=== PATIENT | female | born 1970 | race Caucasian/White ===

== ENCOUNTER 2019-07-13 14:13 | Outpatient (REF) | payer BC, SELFPAY ==
[2019-07-13 21:46] LABS: Abs Immature Grans 0.02 k/cumm (0.0-0.09); Absolute Basophil Count 0.06 k/cumm (0.0-0.2); Absolute Eosinophil Count 0.16 k/cumm (0.0-0.7); Absolute Lymphocyte Count 1.84 k/cumm (1.2-3.4); Absolute Monocyte Count 1.13 k/cumm (0.11-0.7); Basophils % 0.5; Eosinophils % 1.4; HCT 46.9 % (36.0-46.0); HGB 13.3 g/dL (12.0-15.5); Immature Grans % 0.2 %; Lymphocytes % 16.3; Mean Corp. HGB Concentration 28.4 g/dL (32.0-36.0); Mean Corpuscular Hemoglobin 27.4 pg (27.0-33.0); Mean Corpuscular Volume 96.5 fL (80-95); Mean Platelet Volume 10.6 fL (8.0-11.0); Neutrophils % 71.6; Platelet Count 382 x1000/uL (130-400); RBC 4.86 m/cumm (4.00-5.20); RBC Distribution Width 18.5 % (11.7-14.6); White Blood Cell Count 11.26 k/cumm (4.4-10.8)
[2019-07-13 21:52] LABS: Absolute Neutrophil Count 8.06 k/cumm (1.2-6.7)
[2019-07-13 22:06] LABS: ALT 58 U/L (14-59); AST 33 U/L (15-37); Albumin 3.9 g/dL (3.4-5.0); Alkaline Phosphatase 94 U/L (46-116); Anion Gap 7.7 mmol/L (3-11); BUN 19 mg/dL (7-18); Bilirubin, Total 0.5 mg/dL (0.2-1.0); CO2 42.3 mmol/L (21.0-32.0); CREATININE 0.92 mg/dL (0.55-1.02); Calcium 9.3 mg/dL (8.5-10.1); Calculated LDL 129 mg/dL (<100); Chloride 91 mmol/L (98-107); Cholesterol 203 mg/dL (<200); Glucose 117 mg/dL (74-106); HDL Cholesterol 46 mg/dL (40-60); Potassium 3.4 mmol/L (3.5-5.1); Sodium 141 mmol/L (136-145); TSH (W/Ref FT4) 3.36 uIU/mL (0.36-3.74); Total Protein 7.8 g/dL (6.4-8.2); Triglyceride 140 mg/dL (<150)
[2019-07-13 22:08] LABS: Hemoglobin A1C 6.4 % (3.8-5.6)
== END 2019-07-13 14:33 ==
LOC: NCHCN 14:13
PROVIDERS: PCP Nurse Practitioner Family; Visit Provider Nurse Practitioner Family
DX: E03.9 Hypothyroidism, unspecified (principal); D64.9 Anemia, unspecified; I50.9 Heart failure, unspecified; E66.9 Obesity, unspecified; Z13.1 Encounter for screening for diabetes mellitus; Z13.220 Encounter for screening for lipoid disorders
CPT/HCPCS: 80053; 80061; 83036; 84443; 85025

== ENCOUNTER 2019-07-20 21:23 | Outpatient (REF) | payer BC, SELFPAY ==
[2019-07-20 21:33] LABS: Anion Gap 3.9 mmol/L (3-11); BUN 22 mg/dL (7-18); CO2 44.1 mmol/L (21.0-32.0); CREATININE 1.44 mg/dL (0.55-1.02); Calcium 9.5 mg/dL (8.5-10.1); Chloride 92 mmol/L (98-107); Estimated GFR 38.53 (mL/min/1.73m2); Glucose 100 mg/dL (74-106); Potassium 3.2 mmol/L (3.5-5.1); Sodium 140 mmol/L (136-145)
== END 2019-07-20 21:43 ==
LOC: NCHCN 21:23
PROVIDERS: PCP Nurse Practitioner Family; Visit Provider Nurse Practitioner Family
DX: I50.30 Unspecified diastolic (congestive) heart failure (principal); I27.20 Pulmonary hypertension, unspecified
CPT/HCPCS: 80048

== ENCOUNTER 2019-07-27 18:12 | Outpatient (REF) | payer BC, SELFPAY ==
[2019-07-27 21:35] LABS: Anion Gap 6.2 mmol/L (3-11); BUN 22 mg/dL (7-18); CO2 41.8 mmol/L (21.0-32.0); CREATININE 1.61 mg/dL (0.55-1.02); Chloride 92 mmol/L (98-107); Estimated GFR 33.87 (mL/min/1.73m2); Glucose 91 mg/dL (74-106); Potassium 3.3 mmol/L (3.5-5.1); Sodium 140 mmol/L (136-145)
== END 2019-07-27 18:32 ==
LOC: NCHCN 18:12
PROVIDERS: PCP Nurse Practitioner Family; Visit Provider Nurse Practitioner Family
DX: I27.20 Pulmonary hypertension, unspecified (principal)
CPT/HCPCS: 80048

== ENCOUNTER 2019-08-03 22:20 | Outpatient (REF) | payer BC, SELFPAY ==
[2019-08-03 21:46] LABS: Anion Gap 4.6 mmol/L (3-11); BUN 13 mg/dL (7-18); CO2 37.4 mmol/L (21.0-32.0); CREATININE 1.06 mg/dL (0.55-1.02); Calcium 8.7 mg/dL (8.5-10.1); Chloride 99 mmol/L (98-107); Estimated GFR 54.87 (mL/min/1.73m2); Glucose 80 mg/dL (74-106); NT-proBNP 78 pg/mL (<300); Potassium 3.9 mmol/L (3.5-5.1); Sodium 141 mmol/L (136-145)
[2019-08-07 11:09] LABS: Hepatitis C Ab w Rflx HCV PCR Negative (Negative)
== END 2019-08-03 22:40 ==
LOC: NCHCN 22:20
PROVIDERS: PCP Nurse Practitioner Family; Visit Provider Nurse Practitioner Family
DX: I50.30 Unspecified diastolic (congestive) heart failure (principal); E87.6 Hypokalemia; Z11.59 Encounter for screening for other viral diseases
CPT/HCPCS: 80048; 86803; 83880

== ENCOUNTER 2019-08-14 16:56 | Outpatient (REF) | payer BC, SELFPAY ==
[2019-08-14 21:22] LABS: Anion Gap 4.1 mmol/L (3-11); BUN 11 mg/dL (7-18); CO2 36.9 mmol/L (21.0-32.0); CREATININE 0.97 mg/dL (0.55-1.02); Calcium 8.7 mg/dL (8.5-10.1); Chloride 101 mmol/L (98-107); Glucose 79 mg/dL (74-106); Sodium 142 mmol/L (136-145)
== END 2019-08-14 17:16 ==
LOC: NCHCN 16:56
PROVIDERS: PCP Nurse Practitioner Family; Visit Provider Nurse Practitioner Family
DX: E87.6 Hypokalemia (principal); I50.30 Unspecified diastolic (congestive) heart failure
CPT/HCPCS: 80048

== ENCOUNTER 2019-11-13 13:41 | Outpatient (REF) | payer MEDICAID, SELFPAY ==
[2019-11-13 20:58] LABS: HCT 35.7 % (36.0-46.0); Mean Corp. HGB Concentration 33.6 g/dL (32.0-36.0); Mean Platelet Volume 9.8 fL (8.0-11.0); Platelet Count 283 x1000/uL (130-400); RBC Distribution Width 15.5 % (11.7-14.6); White Blood Cell Count 9.86 k/cumm (4.4-10.8)
[2019-11-13 21:22] LABS: ALT 37 U/L (14-59); AST 31 U/L (15-37); Albumin 3.6 g/dL (3.4-5.0); Alkaline Phosphatase 102 U/L (46-116); Anion Gap 5.6 mmol/L (3-11); BUN 13 mg/dL (7-18); Bilirubin, Total 0.9 mg/dL (0.2-1.0); CO2 37.4 mmol/L (21.0-32.0); CREATININE 1.03 mg/dL (0.55-1.02); Calcium 8.7 mg/dL (8.5-10.1); Calculated LDL 76 mg/dL (<100); Chloride 99 mmol/L (98-107); Cholesterol 147 mg/dL (<200); Estimated GFR 56.49 (mL/min/1.73m2); Glucose 146 mg/dL (74-106); HDL Cholesterol 52 mg/dL (40-60); Potassium 3.8 mmol/L (3.5-5.1); Sodium 142 mmol/L (136-145); TSH 17.67 uIU/mL (0.36-3.74); Total Protein 7.2 g/dL (6.4-8.2); Triglyceride 97 mg/dL (<150)
[2019-11-13 21:33] LABS: Vitamin D 25 Total 5.6 ng/ml (30-100)
[2019-11-13 22:03] LABS: NT-proBNP 27 pg/mL (<300)
[2019-11-16 09:08] LABS: Folate 3.4 ng/mL (See Note); Vitamin B12 192 pg/mL (211-911)
== END 2019-11-13 14:01 ==
LOC: NCHCN 13:41
PROVIDERS: PCP Nurse Practitioner Family; Visit Provider Nurse Practitioner Family
DX: R53.83 Other fatigue (principal); E78.5 Hyperlipidemia, unspecified; I50.30 Unspecified diastolic (congestive) heart failure; E66.9 Obesity, unspecified; E87.6 Hypokalemia
CPT/HCPCS: 80053; 80061; 82306; 85027; 82607; 82746; 83880; 84443

== ENCOUNTER 2019-12-26 11:57 | Outpatient (REF) | payer MEDICAID, SELFPAY ==
[2019-12-26 21:26] LABS: HCT 38.7 % (36.0-46.0); HGB 12.4 g/dL (12.0-15.5); Mean Corpuscular Hemoglobin 39.7 pg (27.0-33.0); Mean Platelet Volume 10.9 fL (8.0-11.0); Platelet Count 338 x1000/uL (130-400); RBC 3.12 m/cumm (4.00-5.20); RBC Distribution Width 13.3 % (11.7-14.6); White Blood Cell Count 10.66 k/cumm (4.4-10.8)
[2019-12-26 21:58] LABS: Anion Gap 3.2 mmol/L (3-11); BUN 14 mg/dL (7-18); CO2 35.8 mmol/L (21.0-32.0); CREATININE 1.26 mg/dL (0.55-1.02); Calcium 9.2 mg/dL (8.5-10.1); Chloride 101 mmol/L (98-107); Estimated GFR 44.77 (mL/min/1.73m2); Folate 7.5 ng/mL (8.6-20.0); Glucose 128 mg/dL (74-106); Potassium 4.1 mmol/L (3.5-5.1); Sodium 140 mmol/L (136-145); TSH 63.67 uIU/mL (0.36-3.74); Vitamin B12 622 pg/mL (193-986)
[2019-12-27 15:46] LABS: FREE T4 0.63 ng/dL (0.76-1.46)
== END 2019-12-26 12:17 ==
LOC: NCHCN 11:57
PROVIDERS: PCP Nurse Practitioner Family; Visit Provider Nurse Practitioner Family
DX: E03.9 Hypothyroidism, unspecified (principal); I10 Essential (primary) hypertension; J96.21 Acute and chronic respiratory failure with hypoxia; I50.30 Unspecified diastolic (congestive) heart failure; D53.9 Nutritional anemia, unspecified
CPT/HCPCS: 80048; 85027; 82607; 82746; 84439; 84443

== ENCOUNTER 2020-01-16 16:12 | Outpatient (REF) | payer MEDICAID, SELFPAY ==
[2020-01-18 05:22] LABS: Vitamin D 25 Total 27.2 ng/ml (30-100)
[2020-01-18 10:58] LABS: TSH 44.91 uIU/mL (0.36-3.74)
== END 2020-01-16 16:32 ==
LOC: NCHCN 16:12
PROVIDERS: PCP Nurse Practitioner Family; Visit Provider Nurse Practitioner Family
DX: E55.9 Vitamin D deficiency, unspecified (principal); E03.9 Hypothyroidism, unspecified; R53.83 Other fatigue
CPT/HCPCS: 82306; 84443

== ENCOUNTER 2020-03-01 12:05 | Outpatient (REF) | payer MEDICAID, SELFPAY ==
[2020-03-04 06:07] LABS: Vitamin D 25 Total 25.9 ng/ml (30-100)
== END 2020-03-01 12:25 ==
LOC: NCHCN 12:05
PROVIDERS: PCP Nurse Practitioner Family; Visit Provider Nurse Practitioner Family
DX: E03.9 Hypothyroidism, unspecified (principal); E55.9 Vitamin D deficiency, unspecified
CPT/HCPCS: 82306; 84443

== ENCOUNTER 2020-07-04 19:48 | Outpatient (REF) | payer MEDICAID, SELFPAY ==
[2020-07-04 20:46] LABS: ALT 46 U/L (14-59); AST 27 U/L (15-37); Albumin 3.8 g/dL (3.4-5.0); Alkaline Phosphatase 93 U/L (46-116); Anion Gap 5.7 mmol/L (3-11); BUN 16 mg/dL (7-18); Bilirubin, Total 0.4 mg/dL (0.2-1.0); CO2 36.3 mmol/L (21.0-32.0); CREATININE 0.9 mg/dL (0.55-1.02); Calcium 8.9 mg/dL (8.5-10.1); Chloride 98 mmol/L (98-107); Glucose 83 mg/dL (74-106); Hemoglobin A1C 5.6 % (<5.7); Potassium 3.6 mmol/L (3.5-5.1); Sodium 140 mmol/L (136-145); Total Protein 7.6 g/dL (6.4-8.2)
== END 2020-07-04 20:08 ==
LOC: NCHCN 19:48
PROVIDERS: PCP Nurse Practitioner Family; Visit Provider Nurse Practitioner Family
DX: R73.03 Prediabetes (principal); I10 Essential (primary) hypertension; I27.20 Pulmonary hypertension, unspecified
CPT/HCPCS: 80053; 83036

== ENCOUNTER 2020-08-01 18:22 | Outpatient (REF) | payer MEDICAID, SELFPAY ==
[2020-08-01 20:06] LABS: ALT 38 U/L (14-59); AST 19 U/L (15-37); Albumin 3.8 g/dL (3.4-5.0); Alkaline Phosphatase 91 U/L (46-116); Anion Gap 4.4 mmol/L (3-11); BUN 22 mg/dL (7-18); Bilirubin, Total 0.4 mg/dL (0.2-1.0); CO2 35.6 mmol/L (21.0-32.0); CREATININE 1.1 mg/dL (0.55-1.02); Calcium 8.9 mg/dL (8.5-10.1); Chloride 101 mmol/L (98-107); Estimated GFR 52.36 (mL/min/1.73m2); Glucose 94 mg/dL (74-106); Potassium 3.8 mmol/L (3.5-5.1); Sodium 141 mmol/L (136-145); TSH 0.29 uIU/mL (0.36-3.74); Total Protein 7.6 g/dL (6.4-8.2)
== END 2020-08-01 18:23 | disposition home or self-care (01) ==
LOC: NCHCN 18:22
PROVIDERS: PCP Nurse Practitioner Family; Visit Provider Nurse Practitioner Family
DX: E03.9 Hypothyroidism, unspecified (principal); I27.20 Pulmonary hypertension, unspecified; I50.30 Unspecified diastolic (congestive) heart failure
CPT/HCPCS: 80053; 84443

== ENCOUNTER 2020-08-28 16:17 | Outpatient (REF) | payer MEDICAID, SELFPAY ==
[2020-08-28 22:17] LABS: ALT 40 U/L (14-59); AST 19 U/L (15-37); Albumin 3.8 g/dL (3.4-5.0); Alkaline Phosphatase 87 U/L (46-116); Anion Gap 6.3 mmol/L (3-11); BUN 19 mg/dL (7-18); Bilirubin, Total 0.5 mg/dL (0.2-1.0); CO2 33.7 mmol/L (21.0-32.0); CREATININE 1.6 mg/dL (0.55-1.02); Calcium 9.2 mg/dL (8.5-10.1); Chloride 100 mmol/L (98-107); Estimated GFR 33.85 (mL/min/1.73m2); Glucose 101 mg/dL (74-106); Potassium 4.3 mmol/L (3.5-5.1); Sodium 140 mmol/L (136-145); TSH (W/Ref FT4) 0.18 uIU/mL (0.36-3.74); Total Protein 7.6 g/dL (6.4-8.2)
[2020-08-28 22:38] LABS: FREE T4 1.61 ng/dL (0.76-1.46)
== END 2020-08-28 16:18 | disposition home or self-care (01) ==
LOC: NCHCN 16:17
PROVIDERS: PCP Nurse Practitioner Family; Visit Provider Nurse Practitioner Family
DX: F41.8 Other specified anxiety disorders (principal); F10.11 Alcohol abuse, in remission; R11.0 Nausea
CPT/HCPCS: 80053; 84439; 84443

== ENCOUNTER 2020-09-03 14:37 | Outpatient (REF) | payer MEDICAID, SELFPAY ==
--- OUTSIDE RECORDS SUMMARY | 2020-09-03 14:41 | XMS_ITS ---
:1970 External Reference #:[id number] Author Care Team Providers Name Role Phone KAVITA REESE Primary Care Provider [phone] CASIE WISDOM Crib Clerk [phone] WINSOME WISDOM Crib Clerk [phone] Allergies Code Code System Name Reaction Severity Status Onset RxNorm Lamictal ? ? Active ? 56073 RxNorm Lisinopril Cough ? Active ? Medications Name Status Start Date Stop Date ? ? amoxicillin 500 mg capsule Active ? Not a vailable amoxicillin 875 mg-potassium clavulanate Active ? Not available 125 mg tablet aripiprazole 10 mg tablet Active ? Not av ailable aripiprazole 2 mg tablet Active ? Not iesha ilable aripiprazole 5 mg tablet Active ? Not iesha ilable clonidine HCl 0.1 mg tablet Active ? Not available Incruse Ellipta 62.5 mcg/actuation powder Active ? Not available for inhalation ipratropium 0.5 mg-albuterol 3 mg (2.5 mg Active ? Not available base)/3 mL nebulization soln levothyroxine 112 mcg tablet Active ? Not available levothyroxine 88 mcg tablet Active ? Not available lorazepam 1 mg tablet Active ? Not availa ble metoprolol succinate ER 25 mg Active ? No t available tablet,extended release 24 hr metoprolol succinate ER 50 mg Active ? No t available tablet,extended release 24 hr potassium chloride ER 20 mEq Active ? Not available tablet,extended release(part/cryst) prednisone 20 mg tablet Active ? Not avai lable ProAir HFA 90 mcg/actuation aerosol Active ? Not available inhaler torsemide 20 mg tablet Active ? Not avail able Problems Name Status Onset Date Source ? Obesity Active 04/26/2019 ? Recurrent Major Depression Active 04/26/2019 ? Alcoholism Active 04/26/2019 ? Posttraumatic Stress Disorder Active 04/26/2019 ? Carpal Tunnel Syndrome of Left Wrist Active 04/26/2019 ? 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 Arthritis of First Carpometacarpal Joint of Active 04/08 ? Left Hand Ventricular Tachyarrhythmia Active 04/26/2019 ? Neck Pain Active 05/24/2019 ? Pain in Left Thumb Active 07/19/2019 ? Procedures Date Name Performed by ? 06/05/2019 MRI, Cervical Spine, W/o Contrast [facility] - Radiology [address] [place], [place] [address] (Work Place) Results Lab Results None recorded. Past Encounters 07/19/2019 Carpal Tunnel Syndrome of Left Wrist; Ar thritis of First Carpometacarpal Joint of Left Hand Torres Fuller MD: [address] [place] [phone], Ph. [phone] 06/27/2019 Carpal Tunnel Syndrome of Left Wrist; Ne ck Pain; Arthritis of First Carpometacarpal Joint of Left Hand Torres Fuller MD: [address] [place] [address], Ph. [phone] 05/24/2019 Radial Styloid Tenosynovitis; Neck Pain Torres Fuller MD: [address] [place] [address], [place] [address], Ph. [phone] 05/10/2019 Pain of Left Hand Torres Fuller MD: [address] [place] [address], [place] [address], Ph. [phone] 04/26/2019 Carpal Tunnel Syndrome of Left Wrist; Ar thritis of First Carpometacarpal Joint of Left Hand; Radial Styloid Tenosynovitis Torres Fuller MD: [address] [place] [phone], Ph. [phone] Social History None recorded. Vaccine List None recorded. Plan of Care Reminders Provider Appointments None ? ? recorded. Lab None ? ? recorded. Referral None ? ? recorded. Procedures None ? ? recorded. Surgeries None ? ? recorded. Imaging None ? ? recorded. Vitals None recorded.
[2020-09-03 21:24] LABS: Anion Gap 4.6 mmol/L (3-11); BUN 15 mg/dL (7-18); CO2 32.4 mmol/L (21.0-32.0); CREATININE 1.2 mg/dL (0.55-1.02); Calcium 9.2 mg/dL (8.5-10.1); Chloride 105 mmol/L (98-107); Estimated GFR 47.18 (mL/min/1.73m2); Glucose 93 mg/dL (74-106); Potassium 4.4 mmol/L (3.5-5.1); Sodium 142 mmol/L (136-145)
== END 2020-09-03 14:38 | disposition home or self-care (01) ==
LOC: NCHCN 14:37
PROVIDERS: PCP Nurse Practitioner Family; Visit Provider Nurse Practitioner Family
DX: I10 Essential (primary) hypertension (principal)
CPT/HCPCS: 80048

== ENCOUNTER 2020-10-15 13:41 | Outpatient (REF) | payer MEDICAID, SELFPAY ==
--- OUTSIDE RECORDS SUMMARY | 2020-10-15 13:45 | XMS_ITS ---
:1970 External Reference #:[id number] Author Care Team Providers Name Role Phone KAVITA REESE Primary Care Provider [phone] CASIE WISDOM Bolt Sorter [phone] WINSOME WISDOM Bolt Sorter [phone] Allergies Code Code System Name Reaction Severity Status Onset RxNorm Lamictal ? ? Active ? 73235 RxNorm Lisinopril Cough ? Active ? Medications [...] ? 06/05/2019 MRI, Cervical Spine, W/o Contrast [facility] - Radiology [address] [place], [place] [address] (Work Place) Results Lab Results None recorded. Past Encounters 07/19/2019 Carpal Tunnel Syndrome of Left Wrist; Ar thritis of First Carpometacarpal Joint of Left Hand Torres Fuller MD: [address] [place] [phone], Ph. [phone] 06/27/2019 Carpal Tunnel Syndrome of Left Wrist; Ne ck Pain; Arthritis of First Carpometacarpal Joint of Left Hand Torres Fuller MD: [address] [place] [phone], Ph. [phone] 05/24/2019 Radial Styloid Tenosynovitis; Neck Pain Torres Fuller MD: [address] [place] [address], [place] [address], Ph. [phone] 05/10/2019 Pain of Left Hand Torres Fuller MD: [address] [place] [address], [place] [address], Ph. [phone] 04/26/2019 Carpal Tunnel Syndrome of Left Wrist; Ar thritis of First Carpometacarpal Joint of Left Hand; Radial Styloid Tenosynovitis Torres Fuller MD: [address] [place] [phone], Ph. [phone] Social History None recorded. Vaccine List None recorded. Plan of Care Reminders Provider Appointments None ? ? recorded. Lab None ? ? recorded. Referral None ? ? recorded. Procedures None ? ? recorded. Surgeries None ? ? recorded. Imaging None ? ? recorded. Vitals None recorded.
[2020-10-15 14:20] LABS: TSH (W/Ref FT4) 2.76 uIU/mL (0.36-3.74)
== END 2020-10-15 13:42 | disposition home or self-care (01) ==
LOC: NCHCN 13:41
PROVIDERS: PCP Nurse Practitioner Family; Visit Provider Nurse Practitioner Family
DX: E03.9 Hypothyroidism, unspecified (principal)
CPT/HCPCS: 84443

== ENCOUNTER 2020-11-05 12:32 | Outpatient (REF) | payer MEDICAID, SELFPAY ==
--- OUTSIDE RECORDS SUMMARY | 2020-11-05 12:35 | XMS_ITS ---
:1970 External Reference #:[id number] Author Care Team Providers Name Role Phone KAVITA REESE Primary Care Provider [phone] CASIE WISDOM Cord Maker [phone] WINSOME WISDOM Cord Maker [phone] Allergies Code Code System Name Reaction Severity Status Onset RxNorm Lamictal ? ? Active ? 02077 RxNorm Lisinopril Cough ? Active ? Medications [...] ? 06/05/2019 MRI, Cervical Spine, W/o Contrast [facility] - Radiology [address] [place], [place] [address] (Work Place) Results Lab Results None recorded. Past Encounters 07/19/2019 Carpal Tunnel Syndrome of Left Wrist; Ar thritis of First Carpometacarpal Joint of Left Hand Torres Fuller MD: [address] [place] [address], [place] [address], Ph. [phone] 06/27/2019 Carpal Tunnel Syndrome of Left Wrist; Ne ck Pain; Arthritis of First Carpometacarpal Joint of Left Hand Torres Fuller MD: [address] [place] [address], Ph. [phone] 05/24/2019 Radial Styloid Tenosynovitis; Neck Pain Torres Fuller MD: [address] [place] [address], Ph. [phone] 05/10/2019 Pain of Left Hand Torres Fuller MD: [address] [place] [address], Ph. [phone] Social History None recorded. Vaccine List None recorded. Plan of Care Reminders Provider Appointments None ? ? recorded. Lab None ? ? recorded. Referral None ? ? recorded. Procedures None ? ? recorded. Surgeries None ? ? recorded. Imaging None ? ? recorded. Vitals None recorded.
[2020-11-05 21:47] LABS: BUN 14 mg/dL (7-18); Calcium 8.7 mg/dL (8.5-10.1); Chloride 105 mmol/L (98-107); Estimated GFR 58.22 (mL/min/1.73m2); Glucose 80 mg/dL (74-106); Potassium 4.9 mmol/L (3.5-5.1); Sodium 143 mmol/L (136-145)
== END 2020-11-05 12:33 | disposition home or self-care (01) ==
LOC: NCHCN 12:32
PROVIDERS: PCP Nurse Practitioner Family; Visit Provider Nurse Practitioner Family
DX: I27.20 Pulmonary hypertension, unspecified (principal)
CPT/HCPCS: 80048

== ENCOUNTER 2021-05-05 12:48 | Outpatient (REF) | payer MEDICAID, SELFPAY ==
[2021-05-05 22:00] LABS: HCT 44.1 % (36.0-46.0); HGB 14.2 g/dL (11.2-15.7); MCH 29.8 pg (27.0-33.0); MCHC 32.2 % (32.0-36.0); MCV 92.5 fL (80-95); MPV 11.1 fL (8.0-11.0); Platelet Count 277 10^3/uL (130-400); RBC 4.77 10^6/uL (3.93-5.22); RDW 12.4 % (11.7-14.6); RDW-SD 42.5 fL; WBC 10.68 10^3/uL (4.4-10.8)
[2021-05-05 22:03] LABS: ALT 27 U/L (14-59); AST 19 U/L (15-37); Alkaline Phosphatase 94 U/L (46-116); BUN 19 mg/dL (7-18); Bilirubin, Total 0.6 mg/dL (0.2-1.0); CREATININE 1.1 mg/dL (0.55-1.02); Chloride 98 mmol/L (98-107); Estimated GFR 52.16 (mL/min/1.73m2); Glucose 93 mg/dL (74-106); Potassium 3.8 mmol/L (3.5-5.1); Sodium 139 mmol/L (136-145); Total Protein 7.7 g/dL (6.4-8.2)
== END 2021-05-05 12:49 | disposition home or self-care (01) ==
LOC: NCHCN 12:48
PROVIDERS: PCP Nurse Practitioner Family; Visit Provider Nurse Practitioner Family
DX: R73.03 Prediabetes (principal); R10.30 Lower abdominal pain, unspecified
CPT/HCPCS: 80053; 85027

== ENCOUNTER 2021-06-02 11:41 | Outpatient (REF) | payer MEDICAID, SELFPAY ==
[2021-06-02 16:57] LABS: ALT 20 U/L (14-59); AST 16 U/L (15-37); Albumin 3.8 g/dL (3.4-5.0); Alkaline Phosphatase 110 U/L (46-116); Anion Gap 6.4 mmol/L (3-11); BUN 25 mg/dL (7-18); Bilirubin, Total 0.3 mg/dL (0.2-1.0); CO2 32.6 mmol/L (21.0-32.0); CREATININE 1.2 mg/dL (0.55-1.02); Calcium 8.6 mg/dL (8.5-10.1); Chloride 101 mmol/L (98-107); Estimated GFR 47.18 (mL/min/1.73m2); Glucose 95 mg/dL (74-106); Potassium 4.1 mmol/L (3.5-5.1); Sodium 140 mmol/L (136-145); Total Protein 7.4 g/dL (6.4-8.2)
== END 2021-06-02 11:42 | disposition home or self-care (01) ==
LOC: NCHCN 11:41
PROVIDERS: PCP Nurse Practitioner Family; Visit Provider Nurse Practitioner Family
DX: I10 Essential (primary) hypertension (principal); E87.6 Hypokalemia
CPT/HCPCS: 80053

== ENCOUNTER 2021-07-14 14:58 | Outpatient (REF) | payer MEDICAID, SELFPAY ==
[2021-07-14 21:30] LABS: ALT 25 U/L (14-59); AST 15 U/L (15-37); Albumin 3.8 g/dL (3.4-5.0); Alkaline Phosphatase 101 U/L (46-116); Anion Gap 7.7 mmol/L (3-11); BUN 19 mg/dL (7-18); Bilirubin, Total 0.3 mg/dL (0.2-1.0); CO2 30.3 mmol/L (21.0-32.0); CREATININE 1.1 mg/dL (0.55-1.02); Calcium 8.5 mg/dL (8.5-10.1); Chloride 103 mmol/L (98-107); Estimated GFR 52.16 (mL/min/1.73m2); Glucose 77 mg/dL (74-106); Potassium 4.4 mmol/L (3.5-5.1); Sodium 141 mmol/L (136-145); Total Protein 7.2 g/dL (6.4-8.2)
== END 2021-07-14 14:59 | disposition home or self-care (01) ==
LOC: NCHCN 14:58
PROVIDERS: PCP Nurse Practitioner Family; Visit Provider Nurse Practitioner Family
DX: B35.1 Tinea unguium (principal); Z51.81 Encounter for therapeutic drug level monitoring
CPT/HCPCS: 80053

== ENCOUNTER 2021-11-04 15:51 | Outpatient (REF) | payer MEDICARE, MEDICAID, SELFPAY ==
--- OUTSIDE RECORDS SUMMARY | 2021-11-04 15:55 | XMS_ITS | Continuity of Care Document ---
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 able Marisol Skinner ANP Primary Care Physician Unavailable Allergies and adverse reactions Active Allergies Criticality Reaction Severity Comments Date Lamictal Unable to assess rash 09/14/2018 criticality Lisinopril Unable to assess cough 09/14/2018 criticality Medications Active Medications SIG Qnty Indications Ordering Date Provider Lorazepam 1mg one tab by mouth 10tabs Marisol A Tablets for breakthru Brody, ANP panic attacks as needed Clonidine HCL 0.1mg take 1 tablet by 60tabs F41.1 Marisol A 02/24/2019 Tablets mouth two times a Brody, ANP day (03/08 still at 1 tab qd) Aripiprazole 5mg take 1 tablet by 30tabs F33.9 Marisol A 12/05/2018 Tablets mouth every Brody, ANP morning Metoprolol Succinate Take One Tablet 90tabs Marisol A 09/30/2018 ER 50mg Tablets ER By Mouth Once Brody, ANP 24HR Daily Proair HFA 2 puffs qid prn Unknown 0 000 108(90Base) mcg/Act Aerosol Levothyroxine Sodium one tab every 90tabs Marisol A 112mcg Tablets day by mouth Brody, ANP B Complex Capsules 1 by mouth every Unknown day Immunizations CPT Code Status Date Vaccine Lot # [id number] Given 04/28/2019 Prevnar Pneumococcal PCV13 ( 19Yo+) - [facility] [id number] Supply [id number] Given 03/29/2019 Influenza (Flulaval) - Quad - [facility] Supply [id number] 53761 Given 03/05/2017 Pneumovax Pneumococcal PPSV2 3 Vaccine 2Yrs Or Older 24482 Given 01/18/2013 TDaP 7+ Yrs Old - Boostrix/A dacel Vital Signs Date Vital Result Comment 06/08/2019 9:28am Height 64 inches 5'4 no shoes BP Systolic 140 mmHg left, lg cuff BP Diastolic 84 mmHg left, lg cuff Heart Rate 68 /min Body Temperature 97.7 ?F O2 % BldC Oximetry 96 % Ra, HR=78 04/28/2019 9:04am Height 64 inches 5'4 no shoes BP Systolic 144 mmHg left, lg cuff BP Diastolic 72 mmHg left, lg cuff Heart Rate 88 /min Body Temperature 98.3 ?F 03/29/2019 3:20pm Height 64 inches 5'4 no shoes Weight 262.50 lb with shoes BMI (Body Mass Index) 45.1 kg/m2 BP Systolic 140 mmHg left, lg cuff BP Diastolic 90 mmHg left, lg cuff Heart Rate 80 /min Body Temperature 98.4 ?F
--- OUTSIDE RECORDS SUMMARY | 2021-11-04 15:56 | XMS_ITS ---
:1970 External Reference #:[id number] Author Care Team Providers Name Role Phone KAVITA REESE Primary Care Provider [phone] CASIE WISDOM Account Executive [phone] WINSOME WISDOM Account Executive [phone] Allergies Code Code System Name Reaction Severity Status Onset RxNorm Lamictal ? ? Active ? 33507 RxNorm Lisinopril Cough ? Active ? Medications Name Status Start Date Stop Date ? ? amoxicillin 500 mg capsule Active ? Not a vailable amoxicillin 875 mg-potassium clavulanate 125 mg tablet Active ? Not available aripiprazole 10 mg tablet Active ? Not av ailable aripiprazole 2 mg tablet Active ? Not iesha ilable aripiprazole 5 mg tablet Active ? Not iesha ilable clonidine HCl 0.1 mg tablet Active ? Not available Incruse Ellipta 62.5 mcg/actuation powder for inhalation Active ? Not available ipratropium 0.5 mg-albuterol 3 mg (2.5 mg base)/3 mL Active ? Not available nebulization soln levothyroxine 112 mcg tablet Active ? Not available levothyroxine 88 mcg tablet Active ? Not available lorazepam 1 mg tablet Active ? Not availa ble metoprolol succinate ER 25 mg tablet,extended release 24 hr Acti ve ? Not available metoprolol succinate ER 50 mg tablet,extended release 24 hr Acti ve ? Not available potassium chloride ER 20 mEq tablet,extended Active ? Not available release(part/cryst) prednisone 20 mg tablet Active ? Not avai lable ProAir HFA 90 mcg/actuation aerosol inhaler Active ? Not available torsemide 20 mg tablet Active ? Not avail able Problems Name Status Onset Date Source ? Obesity Active 04/26/2019 ? Recurrent Major Depression Active 04/26/2019 ? Alcoholism Active 04/26/2019 ? Posttraumatic Stress Disorder Active 04/26/2019 ? Carpal Tunnel Syndrome of Left Wrist Active 04/26/2019 ? 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 Arthritis of First Carpometacarpal Joint of Left Hand Active 04/26/2019 ? Ventricular Tachyarrhythmia Active 04/26/2019 ? Neck Pain Active 05/24/2019 ? Pain in Left Thumb Active 07/19/2019 ? Procedures Date Name Performed by ? 06/05/2019 MRI, Cervical Spine, W/o Contrast [facility] - Radiology [address] [id number] (Work Place) Results Lab Results None recorded. Past Encounters None recorded. Social History None recorded. Vaccine List None recorded. Plan of Care Reminders Provider Appointments None recorded. ? ? Lab None recorded. ? ? Referral None recorded. ? ? Procedures None recorded. ? ? Surgeries None recorded. ? ? Imaging None recorded. ? ? Vitals None recorded.
--- OUTSIDE RECORDS SUMMARY | 2021-11-04 15:56 | XMS_ITS | Continuity of Care Document ---
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
[2021-11-05 18:13] LABS: Albumin 3.7 g/dL (3.4-5.0); Alkaline Phosphatase 110 U/L (46-116); BUN 15 mg/dL (7-18); Bilirubin, Total 0.3 mg/dL (0.2-1.0); CREATININE 1.1 mg/dL (0.55-1.02); Calcium 8.6 mg/dL (8.5-10.1); Chloride 105 mmol/L (98-107); Estimated GFR 51.96 (mL/min/1.73m2); Glucose 85 mg/dL (74-106); Potassium 4.4 mmol/L (3.5-5.1); Sodium 144 mmol/L (136-145); Total Protein 7.1 g/dL (6.4-8.2)
[2021-11-05 18:14] LABS: ALT 23 U/L (14-59); AST 15 U/L (15-37); Anion Gap 6.3 mmol/L (3-11); CO2 32.7 mmol/L (21.0-32.0); TSH (W/Ref FT4) 0.92 uIU/mL (0.36-3.74)
== END 2021-11-04 15:52 | disposition home or self-care (01) ==
LOC: NCHCN 15:51
PROVIDERS: PCP Nurse Practitioner Family; Visit Provider Nurse Practitioner Family
DX: E03.9 Hypothyroidism, unspecified (principal); I10 Essential (primary) hypertension; Z51.81 Encounter for therapeutic drug level monitoring
CPT/HCPCS: 80053; 84443

== ENCOUNTER 2022-02-02 11:01 | Outpatient (REF) | payer MEDICARE, MEDICAID, SELFPAY ==
[2022-02-02 17:54] LABS: ALT 37 U/L (14-59); AST 23 U/L (15-37); Albumin 3.8 g/dL (3.4-5.0); Alkaline Phosphatase 76 U/L (46-116); Anion Gap 7.5 mmol/L (3-11); BUN 15 mg/dL (7-18); Bilirubin, Total 0.4 mg/dL (0.2-1.0); CO2 33.5 mmol/L (21.0-32.0); CREATININE 0.9 mg/dL (0.55-1.02); Calcium 8.4 mg/dL (8.5-10.1); Calculated LDL 125 mg/dL (<100); Chloride 103 mmol/L (98-107); Cholesterol 196 mg/dL (<200); Estimated GFR 76.44 (mL/min/1.73m2); Glucose 106 mg/dL (74-106); HDL Cholesterol 52 mg/dL (40-60); Potassium 4.7 mmol/L (3.5-5.1); Sodium 144 mmol/L (136-145); Total Protein 7.4 g/dL (6.4-8.2); Triglyceride 98 mg/dL (<150)
== END 2022-02-02 11:02 | disposition home or self-care (01) ==
LOC: NCHCN 11:01
PROVIDERS: Visit Provider Nurse Practitioner Family
DX: E78.5 Hyperlipidemia, unspecified (principal); I10 Essential (primary) hypertension
CPT/HCPCS: 80053; 80061

== ENCOUNTER 2022-02-11 12:16 | Outpatient (REF) | payer MEDICARE, MEDICAID, SELFPAY ==
[2022-02-11 16:35] LABS: Anion Gap 2.5 mmol/L (3-11); BUN 15 mg/dL (7-18); CO2 35.5 mmol/L (21.0-32.0); Calcium 8.5 mg/dL (8.5-10.1); Chloride 103 mmol/L (98-107); Estimated GFR 67.36 (mL/min/1.73m2); Glucose 100 mg/dL (74-106); Potassium 4.6 mmol/L (3.5-5.1); Sodium 141 mmol/L (136-145)
== END 2022-02-11 12:17 | disposition home or self-care (01) ==
LOC: NCHCN 12:16
PROVIDERS: Visit Provider Nurse Practitioner Family
DX: I10 Essential (primary) hypertension (principal)
CPT/HCPCS: 80048

== ENCOUNTER 2022-05-07 15:49 | Outpatient (REF) | payer MEDICARE, MEDICAID, SELFPAY ==
[2022-05-07 14:49] LABS: TSH (W/Ref FT4) 3.43 uIU/mL (0.36-3.74)
== END 2022-05-07 15:50 | disposition home or self-care (01) ==
LOC: NCHCN 15:49
PROVIDERS: Visit Provider Nurse Practitioner Family
DX: E03.9 Hypothyroidism, unspecified (principal)
CPT/HCPCS: 84443

== ENCOUNTER 2022-06-17 08:17 | Outpatient (REF) | payer MEDICARE, MEDICAID, SELFPAY ==
[2022-06-17 14:33] LABS: ALT 26 U/L (14-59); AST 26 U/L (15-37); Albumin 3.8 g/dL (3.4-5.0); Alkaline Phosphatase 82 U/L (46-116); Anion Gap 6.2 mmol/L (3-11); BUN 15 mg/dL (7-18); Bilirubin, Total 0.4 mg/dL (0.2-1.0); CO2 30.8 mmol/L (21.0-32.0); Calcium 9.6 mg/dL (8.5-10.1); Calculated LDL 64 mg/dL (<100); Chloride 103 mmol/L (98-107); Cholesterol 127 mg/dL (<200); Estimated GFR 67.36 (mL/min/1.73m2); Glucose 112 mg/dL (74-106); HDL Cholesterol 44 mg/dL (40-60); Potassium 4.4 mmol/L (3.5-5.1); Sodium 140 mmol/L (136-145); Total Protein 7.9 g/dL (6.4-8.2); Triglyceride 97 mg/dL (<150)
== END 2022-06-17 08:18 | disposition home or self-care (01) ==
LOC: NCHCN 08:17
PROVIDERS: Visit Provider Nurse Practitioner Family
DX: E78.5 Hyperlipidemia, unspecified (principal)
CPT/HCPCS: 80053; 80061

== ENCOUNTER 2023-02-09 11:32 | Outpatient (REF) | payer MEDICARE, SELFPAY ==
--- NOTE | 2023-02-09 10:30 | PAPFT_PTH ---
PATIENT: Anel Laurenao LOC: [facility]#:[id number] AGE/SX: 52/F ROOM: RE02/09/[address]: Tresa Alvarez : 1970 BED: DIS: 02/09/2023 SPEC #: [id number] RECD: 02/10/23 17:28 STATUS: WANDA REZhao #: [id number] ROLLY: 02/09/23 10:[address]: Tresa Alvarez DEPT: [facility] Cytology RECD BY: Estefany Hernandez Tissues: 1 - CX/ENDOCX FOR PAP SMEARS Procedures: PAP THIN PREP/[facility] Screening HPV DNA PROBE Comments: [id number] (CHLAMYDIA/GC)
[2023-02-10 09:57] LABS: HIV-1/2 Ag & Ab Screen Negative (Negative)
[2023-02-11 15:36] LABS: Chlamydia Result Negative (Negative); GC Result Negative (Negative)
== END 2023-02-09 11:33 | disposition home or self-care (01) ==
LOC: NCHCN 11:32
PROVIDERS: PCP Family Medicine; Visit Provider Family Medicine
DX: Z11.3 Encounter for screening for infections with a predominantly sexual mode of transmission (principal); Z11.4 Encounter for screening for human immunodeficiency virus [HIV]; Z11.51 Encounter for screening for human papillomavirus (HPV); Z01.419 Encounter for gynecological examination (general) (routine) without abnormal findings
CPT/HCPCS: 87389; 87491; 87591; 88142; 87624

== ENCOUNTER 2023-09-23 16:49 | Outpatient (REF) | payer OTHER, SELFPAY ==
[2023-09-23 16:01] LABS: HCT 46.7 % (36.0-46.0); HGB 15.5 g/dL (11.2-15.7); MCH 31.3 pg (27.0-33.0); MCHC 33.2 % (32.0-36.0); MCV 94 fL (80-95); MPV 10.6 fL (8.0-11.0); Platelet Count 227 10^3/uL (130-400); RBC 4.95 10^6/uL (3.93-5.22); RDW-SD 41.8 fL; WBC 8.72 10^3/uL (4.4-10.8)
[2023-09-23 16:18] LABS: ALT 27 U/L (14-59); AST 18 U/L (15-37); Albumin 3.7 g/dL (3.4-5.0); Alkaline Phosphatase 90 U/L (46-116); Anion Gap 8.4 mmol/L (3-11); BUN 16 mg/dL (7-18); Bilirubin, Total 0.4 mg/dL (0.2-1.0); CO2 27.6 mmol/L (21.0-32.0); Calcium 8.8 mg/dL (8.5-10.1); Calculated LDL 60 mg/dL (<100); Chloride 107 mmol/L (98-107); Cholesterol 119 mg/dL (<200); Estimated GFR 66.53 (mL/min/1.73m2); Glucose 105 mg/dL (74-106); HDL Cholesterol 47 mg/dL (40-60); Potassium 4.1 mmol/L (3.5-5.1); Sodium 143 mmol/L (136-145); TSH 0.33 uIU/Ml (0.36-3.74); Total Protein 7.6 g/dL (6.4-8.2); Triglyceride 60 mg/dL (<150)
[2023-09-23 17:33] LABS: Hemoglobin A1C 5.6 % (<5.7)
== END 2023-09-23 16:50 | disposition home or self-care (01) ==
LOC: NCHCN 16:49
PROVIDERS: PCP Family Medicine; Visit Provider Family Medicine
DX: D64.9 Anemia, unspecified (principal); E78.5 Hyperlipidemia, unspecified; E03.9 Hypothyroidism, unspecified; I10 Essential (primary) hypertension; R73.03 Prediabetes
CPT/HCPCS: 80053; 80061; 85027; 83036; 84443

== ENCOUNTER 2024-02-18 15:20 | Outpatient (REF) | payer OTHER, SELFPAY ==
[2024-02-18 22:20] LABS: TSH 4.19 uIU/Ml (0.36-3.74)
== END 2024-02-18 15:21 | disposition home or self-care (01) ==
LOC: NCHCN 15:20
PROVIDERS: PCP Family Medicine; Visit Provider Family Medicine
DX: E03.9 Hypothyroidism, unspecified (principal)
CPT/HCPCS: 84443

== ENCOUNTER 2024-04-17 15:04 | Outpatient (REF) | payer OTHER, SELFPAY ==
[2024-04-17 16:04] LABS: TSH (W/Ref FT4) 1.99 uIU/mL (0.36-3.74)
== END 2024-04-17 15:05 | disposition home or self-care (01) ==
LOC: NCHCN 15:04
PROVIDERS: PCP Family Medicine; Visit Provider Family Medicine
DX: E03.9 Hypothyroidism, unspecified (principal)
CPT/HCPCS: 84443

== ENCOUNTER 2024-08-14 11:46 | Outpatient (REF) | payer MEDICARE, MEDICAID, SELFPAY ==
[2024-08-14 16:03] LABS: ALT 26 U/L (14-59); AST 19 U/L (15-37); Alkaline Phosphatase 93 U/L (46-116); Anion Gap 7.4 mmol/L (3-11); BUN 18 mg/dL (7-18); Bilirubin, Total 0.5 mg/dL (0.2-1.0); CO2 29.6 mmol/L (21.0-32.0); Calcium 9.1 mg/dL (8.5-10.1); Chloride 107 mmol/L (98-107); Estimated GFR 66.53 (mL/min/1.73m2); Glucose 93 mg/dL (74-106); Potassium 4.4 mmol/L (3.5-5.1); Sodium 144 mmol/L (136-145); TSH 1.03 uIU/mL (0.36-3.74); Total Protein 7.7 g/dL (6.4-8.2)
== END 2024-08-14 11:47 | disposition home or self-care (01) ==
LOC: NCHCN 11:46
PROVIDERS: PCP Family Medicine; Visit Provider Family Medicine
DX: I10 Essential (primary) hypertension (principal); E03.9 Hypothyroidism, unspecified
CPT/HCPCS: 80053; 84443

== ENCOUNTER 2025-01-08 14:47 | Outpatient (REF) | payer MEDICARE, MEDICAID, SELFPAY ==
[2025-01-08 16:58] LABS: Calculated LDL 60 mg/dL (<100); Cholesterol 119 mg/dL (<200); HDL Cholesterol 45 mg/dL (>or=50); TSH (W/Ref FT4) 1.25 uIU/mL (0.36-3.74); Triglyceride 74 mg/dL (<150)
== END 2025-01-08 14:48 | disposition home or self-care (01) ==
LOC: NCHCN 14:47
PROVIDERS: PCP Family Medicine; Visit Provider Family Medicine
DX: E78.5 Hyperlipidemia, unspecified (principal); E03.9 Hypothyroidism, unspecified
CPT/HCPCS: 80061; 84443